=== PATIENT | female | born 1965 | race Caucasian/White ===

== ENCOUNTER → 2017-11-11 | Outpatient (CLI) | payer OTHER | LOC: CIMAGING 09:53 | PROVIDERS: ATTEND Family Medicine | DX: M25.462 Effusion, left knee (principal) | CPT/HCPCS: 73564-PO ==

== ENCOUNTER → 2018-11-10 | Outpatient (CLI) | payer OTHER | LOC: FIMAGING 13:17 | PROVIDERS: ATTEND Family Medicine | DX: Z12.31 Encounter for screening mammogram for malignant neoplasm of breast (principal); Z80.3 Family history of malignant neoplasm of breast; Z13.820 Encounter for screening for osteoporosis; Z78.0 Asymptomatic menopausal state; E07.9 Disorder of thyroid, unspecified; Z79.899 Other long term (current) drug therapy ==